=== PATIENT | male | born 1980 | race Caucasian/White ===

== ENCOUNTER 2019-12-02 06:02 | Emergency (ER) | payer MEDICAID ==
[~2019-12-02] VITALS: Ht 167.6 cm; Wt 77.1 kg
[2019-12-02] MEDS ORDERED: KETOROLAC TROMETHAMINE INJ 30 MG/ML VIAL ONE (06:10)
--- NOTE | 2019-12-02 06:15 | NUR ---
BIBS FOR C/O RLQ ABD PAIN RADIATING TO THE R FLANK. -N/V/D. - PMH OF RENAL STONE. URINE SAMPLPE OBTAINED AND PT WAS PLACED ON A MONITOR.
--- NOTE | 2019-12-02 06:18 | NUR ---
urine and blood collected and sent to lab
[2019-12-02] MEDS ORDERED: ONDANSETRON HCL/PF 4 MG/2 ML VIAL ONE (06:20)
--- NOTE | 2019-12-02 06:29 | NUR ---
returned from ct
[2019-12-02] MEDS ORDERED: ONDANSETRON HCL/PF 4 MG/2 ML VIAL IVP ONE (06:30)
[2019-12-02] MEDS ORDERED: IV NS 0.9% 1,000 ML BAG IV ONE (06:30)
[2019-12-02] MEDS ORDERED: KETOROLAC TROMETHAMINE INJ 30 MG/ML VIAL IV ONE (06:30)
[2019-12-02 06:43] LABS: BASOPHILS # (AUTO) 0.1 /CMM (0.0-0.2); BASOPHILS % (AUTO) 0.7 % (0.0-2.0); HEMATOCRIT 45 % (39-51); HEMOGLOBIN 15.7 g/dL (13.5-17.5); LYMPHOCYTES # (AUTO) 1.7 /CMM (0.8-4.8); LYMPHOCYTES % (AUTO) 16.1 % (20.0-44.0); MEAN CORPUSCULAR HGB CONC 35 g/dl (31.0-36.0); MEAN CORPUSCULAR VOLUME 88 fL (80-96); MONOCYTES # (AUTO) 0.6 /CMM (0.1-1.30); MONOCYTES % (AUTO) 5.9 % (2.0-12.0); NEUTROPHILS # (AUTO) 7.5 /CMM (1.8-8.9); NEUTROPHILS % (AUTO) 73.3 % (43.0-81.0); PLATELET COUNT (AUTO) 277 /CMM (150-450); RED BLOOD CELL COUNT(AUTO) 5.16 MIL/uL (4.5-6.0); WHITE BLOOD COUNT (AUTO) 10.2 K/uL (4.3-11.0)
[2019-12-02 06:45] LABS: APPEARANCE,URINE CLEAR (CLEAR); BILIRUBIN,URINE NEGATIVE (NEGATIVE); BLOOD, URINE MODERATE Ery/uL (NEGATIVE); COLOR,URINE YELLOW (YELLOW); KETONES,URINE NEGATIVE (NEGATIVE); LEUKOCYTE ESTERASE ,URINE NEGATIVE (NEGATIVE); NITRITE, URINE NEGATIVE (NEGATIVE); PH,URINE 5.5 (5.0-8.0); PROTEIN,URINE NEGATIVE (NEGATIVE); UGLUCOSE NEGATIVE (NEGATIVE); UROBILINOGEN,URINE 0.2 EU/dL (0.2)
[2019-12-02 06:55] LABS: BACTERIA,URINE Few /HPF (None Seen); SQUAMOUS EPITHELIAL CELL,UR Few /HPF (None Seen); WBC,URINE 0-2 /HPF (0-3)
[2019-12-02 06:56] LABS: MUCUS,URINE Few /LPF (None Seen)
--- NOTE | 2019-12-02 07:20 | NUR ---
REPORT RECEIVED FROM SILKE PEPE FOR DARON
[2019-12-02 07:52] LABS: ALBUMIN 4.2 g/dL (3.4-5.0); BILIRUBIN,DIRECT 0.1 mg/dL (0.0-0.2); BILIRUBIN,TOTAL 0.4 mg/dL (0.2-1.0); CALCIUM, SERUM 10.1 mg/dL (8.5-10.1); CREATININE 1.2 mg/dL (0.6-1.3); POTASSIUM 3.6 mmol/L (3.5-5.1); TOTAL PROTEIN, SERUM 7.6 g/dL (6.4-8.2)
--- NOTE | 2019-12-02 07:52 | NUR ---
FOLLOWED UP WITH LAB REGARDING DELAY IN BMP/LFT/LIPASE. PER RENETTA, SHE WILL LOOK INTO IT.
[2019-12-02 08:13] VITALS: BP 118/60
--- NOTE | 2019-12-02 08:13 | NUR ---
Patient discharged to home in stable condition. Written and verbal after care instructions given. Patient verbalizes understanding of instruction. Instructed not to drive. IV removed. Catheter intact and site benign. Pressure and 4x4 applied to site. No bleeding noted. Ambulatory steady gait. Discharged with labs, CT results, CT images.
== END 2019-12-02 08:15 | disposition home or self-care (01) ==
LOC: ER 06:03
DX: N20.0 Calculus of kidney (principal); M10.9 Gout, unspecified
CPT/HCPCS: 36415; 74176; 76705; 80048; 80076; 81001; 83690; 85025; 96374; 96375; 99285; J1885; J2405; J7030; 81000-TC

== ENCOUNTER 2025-02-14 18:56 | Emergency (ER) | payer BC, MEDICAID ==
[~2025-02-14] VITALS: Ht 167.6 cm; Wt 79.4 kg
[2025-02-14 19:20] VITALS: BP 141/78; TEMP 98.2; O2SAT 98
== END 2025-02-14 19:51 | disposition home or self-care (01) ==
LOC: ER 19:03
DX: M25.562 Pain in left knee (principal); M17.12 Unilateral primary osteoarthritis, left knee